=== PATIENT | female | born 1965 | race Caucasian/White ===

== ENCOUNTER → 2019-03-02 08:18 | Outpatient (BNVA) | payer BC, SELFPAY | PROVIDERS: PCP Nurse Practitioner Family; Visit Provider Nurse Practitioner Family | DX: R35.0 Frequency of micturition (principal) | CPT/HCPCS: 81003 ==

== ENCOUNTER 2020-03-18 14:38 | Emergency (ER) | payer BC, SELFPAY ==
[2020-03-18] VITALS (7 sets, daily range): BP systolic 135–171; BP diastolic 79–96; PULSE 65–92; RESP 14–23; TEMP 36.8; O2SAT 97–99; BMI 34.3
--- NOTE | 2020-03-18 14:58 | XRR_ITS ---
PROCEDURE INFORMATION: Exam: XR Chest, 1 View Exam date and time: 03/18/2020 3:18 PM Age: 54 years old Clinical indication: Chest pain TECHNIQUE: Imaging protocol: XR of the chest Views: 1 view. COMPARISON: No relevant prior studies available. FINDINGS: Lungs: Unremarkable. No consolidation. Pleural space: Unremarkable. No pleural effusion. No pneumothorax. Heart/Mediastinum: Unremarkable. No cardiomegaly. Bones/joints: Unremarkable. XR/XR chest 1V portable [id number] IMPRESSION: No acute findings.
--- NOTE | 2020-03-18 14:58 | ECG_ITS ---
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
--- NOTE | 2020-03-18 15:07 | PC.PHAR ---
pt states she doesnt usually take aspirin but has been for the last couple of days-pt states she has been taking 2 in the am and 1 tab around 13:00 and sometimes in the evening
--- NOTE | 2020-03-18 15:20 | W.ED.CHESTPA ---
HPI - Chest Pain General: Chief Complaint: Chest Pain Stated Complaint: CHEST PAINS, TIGHTNESS IN CHEST Time Seen by Provider: 03/18/20 14:47 Source: patient Mode of arrival: ambulatory Limitations: no limitations History of Present Illness: HPI narrative: 55-year-old female patient who had COVID-19 about 1 month ago. Around that time she developed chest pain and tightness that continues. Pain is intermittent and she is worried about her sister comes here for evaluation. complaint: chest pain and chest heaviness Onset (ago): month(s) (1) Timing of current episode: episodic Prior episodes: Yes Pain location: left chest Pain radiation: left shoulder and right shoulder Severity: moderate Quality: tightness Relieving factors: nothing Exacerbating factors: nothing Context: recent illness (COVID-19 about one month ago) Associated symptoms: Deny abdominal pain, dyspnea, fever(s), nausea, palpitations or vomiting Review of Systems General: Reports: 10 or more systems reviewed and unremarkable except in HPI and below Const: Denies: fever(s), chills or body aches Eyes: Denies: change in vision or blurry vision ENMT: Denies: throat pain, enlarged tonsils, odynophagia, hoarseness, mouth pain or swelling of lips/tongue Card: Reports: chest pain; Denies: palpitations, irregular heart rhythm, edema or swelling of feet/ankles Resp: Denies: dyspnea, productive cough or non-productive cough GI: Denies: abdominal pain, nausea or vomiting : Denies: flank pain, difficulty voiding, dysuria, urinary frequency, urinary urgency or urinary hesitancy Musc: Denies: neck pain, back pain or extremity swelling Skin/Breast: Denies: rash, pruritus or erythema Neuro: Denies: headache(s), numbness in extremities or weakness in extremities Endo: Denies: polyuria, polydipsia or tired all the time PFSH ED PFSH: Social History (Reviewed 03/18/20 @ 17:12 by Iram Peters MD, [facility]) Smoking and tobacco status: current every day smoker Lives independently: Yes Household members: spouse Housing: House Marital status: Current occupational status: employed Physical Exam Const: COMMON NORMALS: no acute distress, average body habitus, patient oriented x3, no limitations, healthy appearing, alert and well nourished HENMT: COMMON NORMALS: normocephalic, atraumatic and moist oral mucous membranes HEAD & SCALP: normocephalic and atraumatic Neck/C-Spine: COMMON NORMALS: no meningeal signs and no JVD THYROID: other (Fullness in her anterior neck) OTHER: Fullness in the supraclavicular region bilaterally Chest: COMMONS NORMALS: normal inspection of the chest CHEST: Yes tenderness Resp: COMMON NORMALS: normal respiratory effort, No retractions, No use of accessory muscles, clear to auscultation bilaterally and percussion normal AUSCULTATION: clear to auscultation bilaterally PERCUSSION: percussion normal Cardio: COMMON NORMALS: no JVD, regular rate, regular rhythm, S1 normal heart sound present, S2 normal heart sound present, No gallops present (Cardio), No clicks present (Cardio), No murmurs present (Cardio), No rub (Cardio) and Peripheral pulses 2+ throughout RATE: regular rate RHYTHM: regular rhythm HEART SOUNDS: S1 normal heart sound present and S2 normal heart sound present PERIPHERAL PULSES: Peripheral pulses 2+ throughout GI: COMMON NORMALS: Normal to inspection, nondistended, normoactive bowel sounds present, Soft to palpation, non-tender, No hepatosplenomegaly present, no masses and no bruits PALPATION: Yes Soft to palpation and Yes No hepatosplenomegaly present Extremity: COMMON NORMALS: normal to inspection, full ROM, capillary refill normal, no calf tenderness and no pedal edema Neuro: COMMON NORMALS: patient oriented x3 SENSORIUM/ORIENTATION: Yes alert MENINGEAL SIGNS: Yes no meningeal signs Skin: COMMON NORMALS: no wounds, turgor normal, no jaundice, no petechiae and no mottling GENERAL SKIN EXAM: turgor normal RASHES: rashes noted (macular rash on her anterior neck and upper chest) Course Reevaluation(s): Reevaluation #1: Discussed her lab and imaging findings with her. Labs are unremarkable including negative high-sensitivity troponin x2, negative D-dimer. CT scan of her chest shows an adrenal nodule and a thyroid nodule. She is advised to obtain a thyroid ultrasound and follow-up imaging on her adrenal gland. She will call her primary care provider tomorrow and we will work on these. We will discharge her home with a short supply of some pain medication and steroid cream for her rashes. She voiced understanding and is in agreement with the plan Time: 19:10 Vital Signs: Vital signs: Vital Signs Temperature 98.2 F 03/18/20 14:42 Pulse Rate 65 03/18/20 19:50 Respiratory Rate 15 03/18/20 19:50 Blood Pressure 148/79 03/18/20 19:50 Pulse Oximetry 97 03/18/20 19:50 MDM - Chest Pain MDM Narrative: Medical decision making narrative: 54-year-old female patient who presented with nonspecific chest pain. Evaluation in the ED was unremarkable for obvious cause for her. However on CT scan she was noted to have a thyroid nodule and a left adrenal mass which she will follow-up on outpatient. She is discharged home on conservative management and a short course of some pain medicine Lab Data: Labs: Lab Results 03/18/20 03/18/20 03/18/20 Range/Units 15:25 15:25 15:25 WBC 11.8 H (4.0-10.0) 10^3/ uL RBC 4.54 (4.1-5.3) 10^6/u L Hgb 14.0 (11.5-15.3) g/dL Hct 41.9 (37.0-47.0) % MCV 92.3 (81-99) fL MCH 30.8 (28.0-34.0) pg MCHC 33.4 (30.0-36.0) g/dL RDW 12.2 (12.1-15.1) % Plt Count 305 (130-400) 10^3/c mm MPV 11.1 H (7.4-10.4) fL Neut % (Auto) 70.2 % Lymph % (Auto) 22.8 % Rolette % (Auto) 5.4 % Eos % (Auto) 0.8 % Baso % (Auto) 0.4 % Neut # (Auto) 8.26 H (1.8-7.7) 10^3/u L Lymph # (Auto) 2.7 (0.8-4.8) 10^3/u L Rolette # (Auto) 0.6 (0.2-0.9) 10^3/u L Eos # (Auto) 0.1 (0.0-0.8) 10^3/u L Baso # (Auto) 0.1 (0.0-0.1) 10^3/u L Nucleated RBC % (a uto) 0 % Nucleated RBCs # 0.0 /100WBC PT 13.10 (12.1-14.9) SECO NDS INR 0.97 (0.8-1.2) D-Dimer 0.32 (0-0.59) ug/mIFE U Sodium 142 (136-145) mmol/L Potassium 3.8 (3.5-5.1) mmol/L Chloride 104 (98-107) mmol/L Carbon Dioxide 25 (22-29) mmol/L Anion Gap 16.8 (5-19) BUN 8 (6-20) mg/dL Creatinine 0.6 (0.5-0.9) mg/dL GFR Calculation 105.0 (90-130) mL/min Glucose 105 (65-115) mg/dL Calculated Osmolal ity 293 (285-295) mOsm/k g Calcium 9.8 (8.5-10.5) mg/dL Total Bilirubin 0.5 (0.15-1.2) mg/dL AST 20 (0-32) U/L ALT 34 H (0-33) U/L Alkaline Phosphata se 68 (35-105) IU/L Creatine Kinase 48 (26-192) U/L Troponin T Baselin e (0-10) ng/L Troponin T 120 Min [place] (0-10) ng/L Delta Troponin T (0-10) ABS# NT-Pro-B Natriuret Pep 88 (0-125) pg/mL Total Protein 9.5 H (6.6-8.7) g/dL Albumin 4.8 (3.5-5.2) g/dL Globulin 4.7 H (1.3-4.6) g/dL Lipase 20 (13-60) U/L TSH 1.46 (0.27-4.20) uIU/ mL 03/18/20 03/18/20 Range/Units 15:25 17:45 WBC (4.0-10.0) 10^3/ uL RBC (4.1-5.3) 10^6/u L Hgb (11.5-15.3) g/dL Hct (37.0-47.0) % MCV (81-99) fL MCH (28.0-34.0) pg MCHC (30.0-36.0) g/dL RDW (12.1-15.1) % Plt Count (130-400) 10^3/c mm MPV (7.4-10.4) fL Neut % (Auto) % Lymph % (Auto) % [place] % (Auto) % Eos % (Auto) % Baso % (Auto) % Neut # (Auto) (1.8-7.7) 10^3/u L Lymph # (Auto) (0.8-4.8) 10^3/u L Rolette # (Auto) (0.2-0.9) 10^3/u L Eos # (Auto) (0.0-0.8) 10^3/u L Baso # (Auto) (0.0-0.1) 10^3/u L Nucleated RBC % (a uto) % Nucleated RBCs # /100WBC PT (12.1-14.9) SECO NDS INR (0.8-1.2) D-Dimer (0-0.59) ug/mIFE U Sodium (136-145) mmol/L Potassium (3.5-5.1) mmol/L Chloride (98-107) mmol/L Carbon Dioxide (22-29) mmol/L Anion Gap (5-19) BUN (6-20) mg/dL Creatinine (0.5-0.9) mg/dL GFR Calculation (90-130) mL/min Glucose (65-115) mg/dL Calculated Osmolal ity (285-295) mOsm/k g Calcium (8.5-10.5) mg/dL Total Bilirubin (0.15-1.2) mg/dL AST (0-32) U/L ALT (0-33) U/L Alkaline Phosphata se (35-105) IU/L Creatine Kinase (26-192) U/L Troponin T Baselin e 6 (0-10) ng/L Troponin T 120 Min [place] 6.00 (0-10) ng/L Delta Troponin T 0 (0-10) ABS# NT-Pro-B Natriuret Pep (0-125) pg/mL Total Protein (6.6-8.7) g/dL Albumin (3.5-5.2) g/dL Globulin (1.3-4.6) g/dL Lipase (13-60) U/L TSH (0.27-4.20) uIU/ mL Imaging Data^: CXR: Attestation: I personally reviewed and interpreted this imaging study as follows: Radiologist's impression: [employer] [address] XRay Report Signed Patient: Kendy Kc #: [id number] : 1965Acct#:[id number] Age/Sex: 54 / FADM Date: 03/18/20 Loc: ERRoom/Bed: Attending Dr: Ordering Provider/Ordering MD: Iram Peters MD, [facility] Date of Service: 03/18/20 Procedure(s): XR chest 1V portable [id number] Accession Number(s): [id number] Report Number: [id number] PROCEDURE INFORMATION: Exam: XR Chest, 1 View Exam date and time: 03/18/2020 3:18 PM Age: 54 years old Clinical indication: Chest pain TECHNIQUE: Imaging protocol: XR of the chest Views: 1 view. COMPARISON: No relevant prior studies available. FINDINGS: Lungs: Unremarkable. No consolidation. Pleural space: Unremarkable. No pleural effusion. No pneumothorax. Heart/Mediastinum: Unremarkable. No cardiomegaly. Bones/joints: Unremarkable. XR/XR chest 1V portable [id number] IMPRESSION: No acute findings. Dictated By:Anastacio Savage Signed By:Raffi Savage Date/Time:03/18/20 1606 DD/ 1605 CT Chest: Attestation: I personally reviewed and interpreted this imaging study as follows: Radiologist's impression: [employer] [address] [address] [address] Scan Report Signed Patient: Kendy Kc #: [id number] : 1965Acct#:[id number] Age/Sex: 54 / FADM Date: 03/18/20 Loc: ERRoom/Bed: Attending Dr: Ordering Provider/Ordering MD: Iram Peters MD, [facility] Date of Service: 03/18/20 Procedure(s): CT chest w con* [id number] Accession Number(s): [id number] Report Number: [id number] PROCEDURE INFORMATION: Exam: CT Chest With Contrast; Diagnostic Exam date and time: 03/18/2020 5:37 PM Age: 54 years old Clinical indication: Type not specified; Patient HX: Covid 1 month ago C/O intermittent chest pain/tightness since; Additional info: Chest pain, neck fullness TECHNIQUE: Imaging protocol: Diagnostic computed tomography of the chest with intravenous contrast. Radiation optimization: All CT scans at this facility use at least one of these dose optimization techniques: automated exposure control; mA and/or kV adjustment per patient size (includes targeted exams where dose is matched to clinical indication); or iterative reconstruction. Contrast material: OMNI 300; Contrast volume: 95 ml; Contrast route: INTRAVENOUS (IV); COMPARISON: CR (CHEST, ) 03/18/2020 3:17 PM RADIATION DOSE METRICS: Total DLP (mGy-cm): 699.37 FINDINGS: Thyroid: There is a 1.5 cm sized nodule lower pole of the right thyroid, further evaluation with thyroid ultrasound is suggested if not previously done. Lungs: There is some minimal dependent atelectasis in the lungs. No focal infiltrate is identified. Pleural space: Unremarkable. No pneumothorax. No pleural effusion. Heart: Unremarkable. No cardiomegaly. No pericardial effusion. Pulmonary arteries: No pulmonary embolus is identified. Aorta: The aorta is normal. There is no evidence of thoracic aortic aneurysm or dissection. Lymph nodes: There are few small paratracheal and prevascular lymph nodes but no adenopathy. Normal sized axillary lymph nodes are noted. There are calcified right hilar lymph nodes in keeping with old granulomatous disease. There is no evidence of lymphadenopathy. Liver: There is a diffuse decrease in hepatic parenchymal density, consistent with mild fatty infiltration. Adrenals: There is a 1.5 cm size indeterminate low-density lesion in the left adrenal. Consider 12 month follow-up adrenal CT. (Nahum Euceda, ACR White Paper, 2017) Bones/joints: Unremarkable. No acute fracture. Soft tissues: Unremarkable. CT/CT chest w con* [id number] IMPRESSION: 1. Left adrenal lesion, comparison with previous examinations or follow-up is suggested. 2. Right thyroid nodule, further evaluation with thyroid ultrasound is suggested. 3. No acute findings in the chest. COMMENTS: Consistent with the [employer]'s Incidental Findings Committee white paper (J Am Aden Radiol 2015): In patients aged 35 years and older with an incidental thyroid nodule equal to or greater than 1.[address], MRI or extrathyroidal US, further evaluation with dedicated thyroid US is recommended for patients with normal life expectancy and without comorbidities. For smaller nodules without suspicious features, no further evaluation or follow up is recommended. Radiation Dose CTDIVOL = (mGy): DLP = 699.37 (mGy-cm) Dictated By:Rod Hebert Signed By:Chester Hebertigned Date/Time:03/18/201841 DD/ 40 EKG Data^: EKG 1: Attestation: I personally reviewed and interpreted this EKG as follows: EKG interpretation date: 03/18/20 EKG interpretation time: 14:47 Prior EKG tracings: not available for review Interpretation: NSR Heart rate [address] changes. Normal axis. EKG 2: Attestation: I personally reviewed and interpreted this EKG as follows: EKG interpretation date: 03/18/20 EKG interpretation time: 17:01 Prior EKG tracings: available for review Interpretation: Sinus rhythm. Heart rate 65 bpm. Normal axis. No ST changes. Discharge Plan Discharge Patient Disposition: Home Clinical Impression: Thyroid nodule, Left adrenal mass, Dermatitis Chest pain Qualifiers: Chest pain type: other chest pain Qualified Code(s): R07.89 - Other chest pain Condition: Stable Prescriptions: New triamcinolone acetonide 0.5 % cream 1 applic topical BID Qty: 15 RF: 0 tramadol 50 mg tablet 50 mg PO Q8H PRN (Reason: pain) Qty: 12 RF: 0 Continued aspirin 81 mg Tablet,Delayed Release (Dr/Ec) 81 mg PO PRN RF: 0 alprazolam 0.25 mg tablet 0.125 - 0.25 mg PO BID PRN (Reason: Anxiety) RF: 0 Pepcid AC 20 mg Tablet 20 mg PO BID RF: 0 ibuprofen 200 mg Tablet 400 mg PO PRN RF: 0 albuterol sulfate 90 mcg/actuation HFA aerosol inhaler 2 puff INHALATION Q6H PRN (Reason: Shortness Of Breath) RF: 0 Emergen-C 1,000 mg Powder Effervescent In Packet 1 ea PO DAILY RF: 0 naproxen sodium 220 mg Capsule 220 - 440 mg PO PRN RF: 0 Vitamin C 1 tab PO PRN RF: 0 Vitamin D3 1 cap PO PRN RF: 0 zinc 1 cap PO PRN RF: 0 Discharge Orders: Discharge ED (Routine); Ordered 03/18/20 Ordered By: Iram Peters Referrals: Ria Westfall APN [Primary Care Provider] - 1-3 days Discharge Diet: Usual diet Discharge Activity: Increase activity as tolerated Patient Instructions: Dermatitis (Contact), Chest Pain (ED), Thyroid Nodules (ED) Activity Restrictions/Additional Instructions: Return for any new or worsening symptoms. Follow up with your primary care provider within 3 days. You will need an ultrasound of your thyroid to evaluate the spots that was seen on the CT scan. You will also need a follow-up CT scan or an MRI of the spot found on your left adrenal gland. Take the medications as prescribed. Coding Level of Care Code ED [employer] Specialist for Chg Fwd Exam Comprehensive
[2020-03-18 15:44] LABS: Basophils # 0.1 10^3/uL (0.0-0.1); Basophils % 0.4 %; Eosinophils # 0.1 10^3/uL (0.0-0.8); Eosinophils % 0.8 %; Hematocrit 41.9 % (37.0-47.0); Lymphocytes # 2.7 10^3/uL (0.8-4.8); Lymphocytes % 22.8 %; Mean Corpuscular HGB Conc 33.4 g/dL (30.0-36.0); Mean Corpuscular Hemoglobin 30.8 pg (28.0-34.0); Mean Corpuscular Volume 92.3 fL (81-99); Mean Platelet Volume 11.1 fL (7.4-10.4); Monocytes # 0.6 10^3/uL (0.2-0.9); Monocytes % 5.4 %; Neutrophils # 8.26 10^3/uL (1.8-7.7); Neutrophils % 70.2 %; Nucleated Red Blood Cells % 0 %; Platelet Count 305 10^3/cmm (130-400); Red Blood Count 4.54 10^6/uL (4.1-5.3); Red Cell Distribution Width 12.2 % (12.1-15.1); White Blood Count 11.8 10^3/uL (4.0-10.0)
[2020-03-18 15:57] LABS: INR 0.97 (0.8-1.2)
[2020-03-18 16:00] LABS: D Dimer 0.32 ug/mIFEU (0-0.59)
[2020-03-18 16:09] LABS: Troponin(5th) Baseline 6 ng/L (0-10)
[2020-03-18 16:15] LABS: Alanine Aminotransferase 34 U/L (0-33); Albumin Level 4.8 g/dL (3.5-5.2); Alkaline Phosphatase 68 IU/L (35-105); Anion Gap 16.8 (5-19); Aspartate Amino Transferase 20 U/L (0-32); Blood Urea Nitrogen 8 mg/dL (6-20); Calcium 9.8 mg/dL (8.5-10.5); Carbon Dioxide 25 mmol/L (22-29); Chloride 104 mmol/L (98-107); Creatine Phosphokinase 48 U/L (26-192); Glucose 105 mg/dL (65-115); Lipase 20 U/L (13-60); NT Pro B Type Natriuretic Pept 88 pg/mL (0-125); Osmolality Calculated 293 mOsm/kg (285-295); Potassium 3.8 mmol/L (3.5-5.1); Sodium 142 mmol/L (136-145); Thyroid Stimulating Hormone 1.46 uIU/mL (0.27-4.20); Total Bilirubin 0.5 mg/dL (0.15-1.2)
--- NOTE | 2020-03-18 16:58 | ECG_ITS ---
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
--- NOTE | 2020-03-18 17:13 | CTR_ITS ---
PROCEDURE INFORMATION: Exam: CT Chest With Contrast; Diagnostic Exam date and time: 03/18/2020 5:37 PM Age: 54 years old Clinical indication: Type not specified; Patient HX: Covid 1 month ago C/O intermittent chest pain/tightness since; Additional info: Chest pain, neck fullness TECHNIQUE: Imaging protocol: Diagnostic computed tomography of the chest with intravenous contrast. Radiation optimization: All CT scans at this facility use at least one of these dose optimization techniques: automated exposure control; mA and/or kV adjustment per patient size (includes targeted exams where dose is matched to clinical indication); or iterative reconstruction. Contrast material: OMNI 300; Contrast volume: 95 ml; Contrast route: INTRAVENOUS (IV); COMPARISON: CR (CHEST, ) 03/18/2020 3:17 PM RADIATION DOSE METRICS: Total DLP (mGy-cm): 699.37 FINDINGS: Thyroid: There is a 1.5 cm sized nodule lower pole of the right thyroid, further evaluation with thyroid ultrasound is suggested if not previously done. Lungs: There is some minimal dependent atelectasis in the lungs. No focal infiltrate is identified. Pleural space: Unremarkable. No pneumothorax. No pleural effusion. Heart: Unremarkable. No cardiomegaly. No pericardial effusion. Pulmonary arteries: No pulmonary embolus is identified. Aorta: The aorta is normal. There is no evidence of thoracic aortic aneurysm or dissection. Lymph nodes: There are few small paratracheal and prevascular lymph nodes but no adenopathy. Normal sized axillary lymph nodes are noted. There are calcified right hilar lymph nodes in keeping with old granulomatous disease. There is no evidence of lymphadenopathy. Liver: There is a diffuse decrease in hepatic parenchymal density, consistent with mild fatty infiltration. Adrenals: There is a 1.5 cm size indeterminate low-density lesion in the left adrenal. Consider 12 month follow-up adrenal CT. (Nahum Euceda, ACR White Paper, 2017) Bones/joints: Unremarkable. No acute fracture. Soft tissues: Unremarkable. CT/CT chest w con* [id number] IMPRESSION: 1. Left adrenal lesion, comparison with previous examinations or follow-up is suggested. 2. Right thyroid nodule, further evaluation with thyroid ultrasound is suggested. 3. No acute findings in the chest. COMMENTS: Consistent with the [employer]'s Incidental Findings Committee white paper (J Am Aden Radiol 2015): In patients aged 35 years and older with an incidental thyroid nodule equal to or greater than 1.[address], MRI or extrathyroidal US, further evaluation with dedicated thyroid US is recommended for patients with normal life expectancy and without comorbidities. For smaller nodules without suspicious features, no further evaluation or follow up is recommended. Radiation Dose CTDIVOL = (mGy): DLP = 699.37 (mGy-cm)
[2020-03-18] MEDS: iohexol 300 mg/mL 100 mL Btl IV (17:53)
[2020-03-18 18:20] LABS: Troponin 5 2HR Delta 0 ABS# (0-10)
[2020-03-19 20:02] LABS: Globulin 2.5 g/dL (1.3-4.6); Total Protein 7.3 g/dL (6.6-8.7)
== END 2020-03-18 19:50 | disposition home or self-care (01) ==
PROVIDERS: Emergency Provider Family Medicine; PCP Nurse Practitioner Family
DX: E04.1 Nontoxic single thyroid nodule (principal); E27.8 Other specified disorders of adrenal gland; L30.9 Dermatitis, unspecified; Z79.82 Long term (current) use of aspirin; Z79.1 Long term (current) use of non-steroidal anti-inflammatories (NSAID); F17.200 Nicotine dependence, unspecified, uncomplicated; Z86.16 Personal history of COVID-19
CPT/HCPCS: 12345; 36415; 71045; 71260; 80053; 82550; 83690; 83880; 84443; 84484; 85025; 85378; 85610; 93005; 99283; 99284; Q9967